=== PATIENT | male | born 1960 | race Caucasian/White ===

== ENCOUNTER 2018-09-15 11:54 | Observation (INO) ==
[2018-09-15 12:17] VITALS: TEMP 98.3
--- NOTE | 2018-09-15 13:24 | ED ---
HPI General Chief Complaint: Chest Pain Stated Complaint: Chest Pain/Numbness Time Seen by Provider: 09/15/18 13:09 Source: patient Mode of arrival: ambulatory Limitations: no limitations History of Present Illness HPI narrative: 58-year-old male presents for evaluation of left-sided chest pressure for several weeks. Pain has been constant, and he describes it as a numbness or pressure sensation. complaint: Reports chest pain Onset (ago): week(s) Duration: constant Pain location: Reports left chest Severity: moderate Quality: Reports heaviness Pain radiation: Reports none Relieving factors: nothing Exacerbating factors: nothing Context: Denies recent illness, recent surgery, recent immobilization, recent travel, trauma/injury and history of DVT/PE Associated symptoms: Reports dyspnea; Denies nausea, vomiting, diaphoresis, syncope, palpitations, fever, cough and leg swelling Treatments prior to arrival chest pain: Reports aspirin Related Data Allergies Allergy/AdvReac Type Severity Reaction Status Date / Time shellfish derived Allergy Severe THROAT Verified 09/15/18 13:25 CLOSES Review of Systems ROS: all other systems reviewed are negative [facility] Medical History Medical History Hypertension (Acute) Surgical History Surgical History H/O hand surgery (Acute) Hx of hernia repair (Acute) Social History Social History Substance History: No History of Abuse Smoking Status: Never smoker How Often Do You Have a Drink Containing Alcohol: Never Recent Travel in [facility] within the Last 8 Weeks: No Recent Out of Country Travel within the Last 8 Weeks: No Exam Narrative Exam Narrative: GENERAL: Awake, alert, no acute distress SKIN: Focused skin assessment warm/dry. HEAD: Atraumatic. Normocephalic. EYES: Pupils equal and round. No scleral icterus. No injection or drainage. ENT: No nasal bleeding or discharge. Mucous membranes pink and moist. NECK: Trachea midline. No JVD. CARDIOVASCULAR: Regular rate and rhythm. No murmur appreciated. RESPIRATORY: No accessory muscle use. Clear to auscultation. Breath sounds equal bilaterally. Mild tenderness to palpation over left chest wall GASTROINTESTINAL: Abdomen soft, non-tender, nondistended. Hepatic and splenic margins not palpable. RECTAL EXAM: No masses or tenderness, stool is brown. Hemoccult negative. MUSCULOSKELETAL: No obvious deformities. No clubbing. No cyanosis. No edema. NEUROLOGICAL: Awake and alert. No obvious cranial nerve deficits. Motor grossly within normal limits. Normal speech. PSYCHIATRIC: Appropriate mood and affect; insight and judgment normal. Procedures Hemaprompt Stool Procedural Steps Taken: specimen placed in appropriate test area, developer placed on specimen and control areas and controls appropriately positive and negative Hemaprompt Stool Result: negative Course Initial Documented Vital Signs Temperature 98.3 F 09/15/18 12:12 Pulse Rate 67 09/15/18 12:12 Respiratory Rate 19 09/15/18 12:12 Blood Pressure 131/72 09/15/18 12:12 Pulse Oximetry 97 09/15/18 12:12 Last Documented Vital Signs Temperature 98.3 F 09/15/18 13:37 Pulse Rate 79 09/15/18 13:50 Respiratory Rate 18 09/15/18 13:37 Blood Pressure 155/74 H 09/15/18 13:50 Pulse Oximetry 100 09/15/18 13:37 Medical Decision Making [facility] Narrative Medical decision making narrative: 58-year-old male with history of hypertension presents for evaluation of left-sided chest pain for several weeks. Differential diagnosis includes ACS, costochondritis, pericarditis, GERD. Given the duration of symptoms, I do not suspect aortic dissection. Chest x-ray does not show any mediastinal widening. I do not think further workup for dissection this indicated. I do not suspect pulmonary embolism as patient has not had no shortness of breath and is saturating 100% on room air. He also does not of any tachycardia. EKG does not show any ischemic changes. Troponin is negative x1. Laboratory work otherwise unremarkable. Pain did not improve with nitro. Will give dose of Toradol and admit patient to chest pain unit for serial troponins and likely stress test. Medical Screen Exam Complete: Yes Emergency Medical Condition: Yes Lab Data Lab results reviewed: Yes I reviewed the patient's lab results. Result diagrams: 09/15/18 13:10 09/15/18 13:10 Lab Results 09/15/18 09/15/18 09/15/18 Range/Units 13:10 13:10 13:10 WBC 6.9 (4.0-11.0) th/mm3 RBC 4.69 (4.50-5.90) mil/mm3 Hgb 13.9 (13.0-17.0) gm/dL Hct 41.0 (39.0-51.0) % MCV 87.5 (80.0-100.0) fL MCH 29.6 (27.0-34.0) pg MCHC 33.9 (32.0-36.0) % RDW 14.6 (11.6-17.2) % Plt Count 263 (150-450) th/mm3 MPV 7.4 (7.0-11.0) fL Neut % (Auto) 63.0 (16.0-70.0) % Lymph % (Auto) 28.1 (9.0-44.0) % [place] % (Auto) 7.7 (0.0-8.0) % Eos % (Auto) 0.9 (0.0-4.0) % Baso % (Auto) 0.3 (0.0-2.0) % Neut # (Auto) 4.4 (1.8-7.7) th/mm3 Lymph # (Auto) 2.0 (1.0-4.8) th/mm3 [place] # (Auto) 0.5 (0.0-0.9) th/mm3 Eos # (Auto) 0.1 (0.0-0.4) th/mm3 Baso # (Auto) 0.0 (0.0-0.2) th/mm3 WBC Differential . Differential Comment Auto diff final PT 10.3 (9.8-11.6) sec INR 1.0 Ratio APTT 25.8 (23.4-31.7) sec Sodium 138 (136-145) meq/L Potassium 4.1 (3.5-5.1) meq/L Chloride 105 (98-107) meq/L Carbon Dioxide 27.9 (21.0-32.0) meq/L Anion Gap 5 (5-15) meq/L BUN 12 (7-18) mg/dL Creatinine 0.77 (0.60-1.30) mg/dL Estimated GFR Greater than 89 (>89) mL/min Random Glucose 96 (74-106) mg/dL Calcium 8.8 (8.5-10.1) mg/dL Total Bilirubin 0.6 (0.2-1.0) mg/dL AST 22 (15-37) U/L ALT 23 (12-78) U/L Alkaline Phosphatase 44 L (45-117) U/L Troponin I Less than 0.02 L (0.02-0.05) ng/mL Total Protein 7.7 (6.4-8.2) g/dL Albumin 4.5 (3.4-5.0) g/dL Imaging Data Radiologist's impression: Chest X-Ray 09/15/18 13:21 CONCLUSION: The lungs are clear. ECG Data Attestation: I personally reviewed and interpreted this ECG as follows: Interpretation: Normal sinus rhythm, rate of 67, no ST or T wave changes Discharge Plan Discharge Disposition Patient Disposition: ED Admit(ED Internal Use Only) Discharge Condition Condition: Stable Discharge Order Discharge Orders: ED Use Only Admit Order (Routine); Ordered 09/15/18 Ordered By: Candelaria Obregon Discharge Details Diagnosis: Atypical chest pain Physicians Team ED Provider: Candelaria Obregon Primary Care Provider: Ulises Torres Discharge Instructions Patient Printed Instructions: Chest Pain (ED) Status ED Status: With Doctor
[2018-09-15 13:41] VITALS: RESP 18
--- NOTE | 2018-09-15 13:54 | XR ---
EXAM DATE: 09/15/2018 1:48 PM EST AGE/SEX: 58 years / Male INDICATIONS: Chest and left arm pain . CLINICAL DATA: This is the patient's initial encounter. Patient reports that signs and symptoms have been present for 3 weeks and indicates a pain score of 3/10. MEDICAL/SURGICAL HISTORY: . high blood pressure None. COMPARISON: No prior exams available for comparison. FINDINGS: A single AP view of the chest demonstrates the lungs to be symmetrically aerated without evidence of mass, infiltrate or effusion. The cardiomediastinal contours are unremarkable. Osseous structures a re intact. CONCLUSION: The lungs are clear. Electronically signed by: Ant Fink MD Board Certified Radiologist 09/15/2018 1:53 PM EST
[2018-09-15 14:00] LABS: Baso % (Auto) 0.3 % (0.0-2.0); Eos # (Auto) 0.1 th/mm3 (0.0-0.4); Eos % (Auto) 0.9 % (0.0-4.0); Hemoglobin 13.9 gm/dL (13.0-17.0); Lymph % (Auto) 28.1 % (9.0-44.0); Mean Corpuscular HGB Conc 33.9 % (32.0-36.0); Mean Corpuscular Hemoglobin 29.6 pg (27.0-34.0); Mean Corpuscular Volume 87.5 fL (80.0-100.0); Mean Platelet Volume 7.4 fL (7.0-11.0); Mono # (Auto) 0.5 th/mm3 (0.0-0.9); Mono % (Auto) 7.7 % (0.0-8.0); Neut # (Auto) 4.4 th/mm3 (1.8-7.7); Platelet Count 263 th/mm3 (150-450); Red Blood Count 4.69 mil/mm3 (4.50-5.90); Red Cell Distribution Width 14.6 % (11.6-17.2); White Blood Count 6.9 th/mm3 (4.0-11.0)
[2018-09-15 14:11] LABS: Activated Partial Thrombo Time 25.8 sec (23.4-31.7); Prothrombin Time 10.3 sec (9.8-11.6)
[2018-09-15 14:17] LABS: Alanine Aminotransferase 23 U/L (12-78); Albumin 4.5 g/dL (3.4-5.0); Anion Gap 5 meq/L (5-15); Aspartate Aminotransferase 22 U/L (15-37); Blood Urea Nitrogen 12 mg/dL (7-18); Calcium 8.8 mg/dL (8.5-10.1); Carbon Dioxide 27.9 meq/L (21.0-32.0); Chloride 105 meq/L (98-107); Glomerular Filtration Rate Greater Than 89 mL/min (>89); Glucose,Random 96 mg/dL (74-106); Potassium 4.1 meq/L (3.5-5.1); Sodium 138 meq/L (136-145)
[2018-09-15 14:21] LABS: Alkaline Phosphatase 44 U/L (45-117); Total Protein 7.7 g/dL (6.4-8.2)
[2018-09-15] MEDS ORDERED: Ketorolac Inj 30 MG/ML (IVP) Vial IV.PUSH ONE (14:29)
[2018-09-15] MEDS ORDERED: Acetaminophen 500 MG Tablet PO PRN (14:57)
[2018-09-15 15:31] VITALS: BP 150/82; PULSE 66; O2SAT 98
--- NOTE | 2018-09-15 16:25 | P.HPCA ---
History of Present Illness Primary Care Physician: Ulises Torres MD Chief Complaint: Chest pain History of Present Illness: 58 year old male with history of hypertension and hyperlipidemia resents emergency room for further evaluation of chest pain. Onset 3 days ago. Location left anterior chest. Characterized as "pins and needles." This morning sensation began radiating towards left shoulder/left arm/hand/finger tips. No weakness of left extremity. Duration constant. No associated dyspnea, nausea, or diaphoresis. No precipitating or relieving factors. Notices when lifting left arm above head discomfort improves. Endorses long history of chronic back pain, multiple lumbar surgeries, and follows with pain management after traumatic injury in 2000. No known cervical involvement. No recent illness or injury. Past cardiac testing None Social history Known hypertension and hyperlipidemia. Reports being statin intolerant. No known coronary artery disease or diabetes. Lifelong non-smoker. Denies alcohol or recreational drug use. . Disabled. Endorses daily walking. Family history Noncontributory for early onset cardiovascular disease - Diagnosis (1) Atypical chest pain (2) Cervical radiculopathy (3) Hyperlipidemia (4) Hypertension Review of Systems All other systems reviewed negative except as stated [facility]PI [facility] - History History Provided By: Patient - Medical History Medical History: Medical History (Last Updated 09/15/18 @ 16:51 by LANCE Mccarthy) Amputation of thumb, right Chronic low back pain Hyperlipidemia Hypertension - Surgical History Surgical History: Surgical History (Last Updated 09/15/18 @ 16:51 by LANCE Mccarthy) H/O hand surgery History of lumbar surgery Hx of hernia repair - Family History Family History: Family History (Last Updated 09/15/18 @ 16:52 by LANCE Mccarthy) Father Coronary artery disease - Tobacco History Second Hand Smoke Exposure: No Tobacco Use In Past 30 Days: No Smoking Status: Never smoker - Alcohol History How Often Do You Have a Drink Containing Alcohol: Monthly or less - Substance Use History Substance History: No History of Abuse - Travel History Recent Travel in the [place] Within the Last 8 Weeks: No Recent Travel Out of the Country Within the Last 8 Weeks: No - Immunization History Tetanus Immunization: <5 Years Medications and Allergies Active Medications: Active Medications Acetaminophen (Tylenol) 500 mg PO Q4H PRN PRN Reason: HEADACHE Nitroglycerin (Nitrostat Sl) 0.4 mg SL Q5M PRN PRN Reason: CHEST PAIN Ondansetron HCl (Zofran Inj) 4 mg IV.PUSH Q6H PRN PRN Reason: NAUSEA Sodium Chloride (Ns Flush) 2 ml IV.FLUSH BID MARLON Sodium Chloride (Ns Flush) 2 ml IV.FLUSH PRN PRN PRN Reason: FLUSH AFTER USING IV ACCESS Allergies Allergy/AdvReac Type Severity Reaction Status Date / Time shellfish derived Allergy Severe THROAT Verified 09/15/18 13:25 CLOSES Home Medications Medication Instructions Recorded Confirmed Type hydrocodone-acetaminophen 2 tab PO Q6H PRN 09/15/18 09/15/18 History lisinopril 5 mg PO DAILY 09/15/18 09/15/18 History trazodone 50 mg PO 09/15/18 History Exam Vital signs: Vital Signs 09/15/18 12:12 09/15/18 13:37 09/15/18 13:50 Temperature 98.3 F 98.3 F Pulse Rate 67 72 79 Respiratory Rate 19 18 Blood Pressure 131/72 183/72 H 155/74 H Pulse Oximetry 97 100 09/15/18 15:30 Temperature Pulse Rate 66 Respiratory Rate 18 Blood Pressure 150/82 H Pulse Oximetry 98 Intake & Output 09/14/18 09/15/18 09/15/18 18:59 06:59 18:59 Weight 84.822 kg Other: Weight On Admission 84.822 kg Narrative: GENERAL: Alert WN, WD, NAD, pleasant, male HEAD: NC, AT CV: RRR, without murmur or rub. Chest wall nontender to palpation. RESP: Clear lungs throughout bilateral, no crackles, wheeze, rhonchi, symmetrical chest rise, nonlabored, able to speak in full sentences ABD: Soft, NT, ND, no masses, positive bowel tones EXT: Pulses +2x4, no dependent edema MS: Normal tone x4 extremities, nontender, no obvious deformities, full range of motion, right thumb partial amputated NEURO: Motor strength 5/5, gait WNL PSYCH: A+O x3, pleasant affect, appropriate speech, mood, insight and judgment SKIN: Normal turgor, normal texture, no lesions, no rashes Results 09/15/18 13:10 09/15/18 13:10 Cardiac Enzymes 09/15/18 Range/Units 13:10 AST 22 (15-37) U/L Troponin I Less than 0.02 L (0.02-0.05) ng/mL Coagulation 09/15/18 Range/Units 13:10 PT 10.3 (9.8-11.6) sec APTT 25.8 (23.4-31.7) sec CBC 09/15/18 Range/Units 13:10 WBC 6.9 (4.0-11.0) th/mm3 RBC 4.69 (4.50-5.90) mil/mm3 Hgb 13.9 (13.0-17.0) gm/dL Hct 41.0 (39.0-51.0) % Plt Count 263 (150-450) th/mm3 Neut # (Auto) 4.4 (1.8-7.7) th/mm3 Lymph # (Auto) 2.0 (1.0-4.8) th/mm3 [place] # (Auto) 0.5 (0.0-0.9) th/mm3 Eos # (Auto) 0.1 (0.0-0.4) th/mm3 Baso # (Auto) 0.0 (0.0-0.2) th/mm3 Comprehensive Metabolic Panel 09/15/18 Range/Units 13:10 Sodium 138 (136-145) meq/L Potassium 4.1 (3.5-5.1) meq/L Chloride 105 (98-107) meq/L Carbon Dioxide 27.9 (21.0-32.0) meq/L BUN 12 (7-18) mg/dL Creatinine 0.77 (0.60-1.30) mg/dL Calcium 8.8 (8.5-10.1) mg/dL AST 22 (15-37) U/L ALT 23 (12-78) U/L Alkaline Phosphatase 44 L (45-117) U/L Total Protein 7.7 (6.4-8.2) g/dL Albumin 4.5 (3.4-5.0) g/dL Intake and Output 09/15/18 09/15/18 09/15/18 06:59 14:59 22:59 Other: Weight 84.822 kg 84.822 kg Weight On Admission 84.822 kg Patient Weight 09/16/18 06:59 Weight 84.822 kg - Imaging and Cardiology Imaging: Impressions Chest X-Ray 09/15/18 13:21 CONCLUSION: The lungs are clear. EKG interpretations - EKG EKG results cardiology: sinus rhythm, normal axis, normal QRS, normal ST/T Caprini VTE Risk Assessment Caprini VTE Risk Assessment: No/Low Risk (score <= 1) Caprini Risk Assessment Model: Point Value = 1 Point Value = 2 Point Value = 3 Point Value = 5 Age 41-60 Minor surgery BMI > 25 kg/m2 Swollen legs Varicose veins or History of unexplained or recurrent spontaneous Oral contraceptives or hormone replacement Sepsis (< 1 month) Serious lung disease, including pneumonia (< 1 month) Abnormal pulmonary function Acute myocardial infarction Congestive heart failure (< 1 month) History of inflammatory bowel disease Medical patient at bed rest Age 61-74 Arthroscopic surgery Major open surgery (> 45 min) Laparoscopic surgery (> 45 min) Malignancy Confined to bed (> 72 hours) Immobilizing plaster cast Central venous access Age >= 75 History of VTE Family history of VTE Factor V Leiden Prothrombin [id number] Lupus anticoagulant Anticardiolipin antibodies Elevated serum homocysteine Heparin-induced thrombocytopenia Other congenital or acquired thrombophilia Stroke (< 1 month) Elective arthroplasty Hip, pelvis, or leg fracture Acute spinal cord injury (< 1 month) Prophylaxis Regimen: Total Risk Factor Score Risk Level Prophylaxis Regimen 0-1 Low Early ambulation 2 Moderate Order ONE of the following: *Sequential Compression Device (SCD) *Heparin 5000 units SQ BID 3-4 Higher Order ONE of the following medications: *Heparin 5000 units SQ TID *Enoxaparin/Lovenox 40 mg SQ daily (WT < 150 kg, CrCl > 30 mL/min) *Enoxaparin/Lovenox 30 mg SQ daily (WT < 150 kg, CrCl > 10-29 mL/min) *Enoxaparin/Lovenox 30 mg SQ BID (WT < 150 kg, CrCl > 30 mL/min) AND/OR *Sequential Compression Device (SCD) 5 or more Highest Order ONE of the following medications: *Heparin 5000 units SQ TID (Preferred with Epidurals) *Enoxaparin/Lovenox 40 mg SQ daily (WT < 150 kg, CrCl > 30 mL/min) *Enoxaparin/Lovenox 30 mg SQ daily (WT < 150 kg, CrCl > 10-29 mL/min) *Enoxaparin/Lovenox 30 mg SQ BID (WT < 150 kg, CrCl > 30 mL/min) AND *Sequential Compression Device (SCD) Assessment and Plan - Assessment (1) Atypical chest pain Code(s): R07.89 - Other chest pain Status: Acute Plan: Admitted to chest pain center. Seen and evaluated by Dr. Yury Horvath. First set of EKGs and cardiac enzymes unremarkable. Discomfort likely related to cervical radiculopathy, symptoms atypical for cardiac etiology. Proceed with exercise stress test this afternoon. If unremarkable, plan is to discharge home pain management doctor and primary care provider. Patient agreeable to plan of care. (2) Cervical radiculopathy Code(s): M54.12 - Radiculopathy, cervical region Status: Acute Plan: Reassurance provided discomfort likely related to cervical radiculopathy. After cardiac stress testing completed plan is to discharge home. Instructed to use intermittent ice to affected area and [id number] Aleve or Motrin. Follow-up with pain management physician for possible outpatient images. (3) Hyperlipidemia Code(s): E78.5 - Hyperlipidemia, unspecified Status: Chronic Plan: Reports statin intolerance. Encouraged continued use of CoQ10. (4) Hypertension Code(s): I10 - Essential (primary) hypertension Status: Chronic Plan: Continue to monitor. Continue lisinopril. H&P: Quality - VTE Deep Vein Thrombosis/Pulmonary Embolism Present on Admission: No (3) Hyperlipidemia Qualifiers: Hyperlipidemia type: unspecified Qualified Code(s): E78.5 - Hyperlipidemia, unspecified (4) Hypertension Qualifiers: Hypertension type: unspecified Qualified Code(s): I10 - Essential (primary) hypertension
--- NOTE | 2018-09-16 12:23 | ECG ---
Date Performed: 09/15/2018 Time Performed: 12:21:13 PTAGE: 58 years EKG: Sinus rhythm POSSIBLE LEFT ATRIAL ENLARGEMENT POSSIBLE RIGHT VENTRICULAR CONDUCTION DELAY POSSIBLE LEFT VENTRICUL AR HYPERTROPHY ABNORMAL ECG No significant change NO PREVIOUS TRACING DOCTOR: Noah Vera Interpretating Date/Time 09/16/2018 12:21:28
--- NOTE | 2018-09-16 12:27 | TR ---
Date Performed: 09/15/2018 Time Performed: 16:48:59 DOCTOR: Noah Vera DRUG LIST: CLINICAL HISTORY: REASON FOR TEST: Chest pain REASON FOR ENDING: OBSERVATION: CONCLUSION: José Luis protocol completed. Stopped sec to exceeding target heart rate and leg fatigue . Maximum DI=567 Max HR Achieved=87.0% Resting TB=185/80 Maximum WG=217/84. No reprod chest discomfor t. Infrequent PVC. Good exercise tolerance. Hypertensive bp response. Uplsoping st segments. Recovery quick and unremarkable. COMMENTS: Patient did have some J-point depression but this was associated with upsloping ST seg ments and nondiagnostic of ischemia. All in all low probability of ischemic heart disease as a cause for her current presentation.
== END 2018-09-15 17:49 | disposition home or self-care (01) ==
LOC: NEDA 11:54 → NEPD 11:54 → NEDA 15:35 → NEPGCP 15:52
PROVIDERS: ADMIT Internal Medicine Cardiovascular Disease; ATTEND Internal Medicine Cardiovascular Disease
DX: R94.31 Abnormal electrocardiogram [ECG] [EKG]; I10 Essential (primary) hypertension; R07.89 Other chest pain; M54.12 Radiculopathy, cervical region; E78.5 Hyperlipidemia, unspecified; Z82.49 Family history of ischemic heart disease and other diseases of the circulatory system
CPT/HCPCS: 71010; 71045; 80053; 84484; 85025; 85610; 85730; 93005; 93017; 96374; 99285; G0378; J1885